=== PATIENT | male | born 1960 | race Caucasian/White ===

== ENCOUNTER 2018-01-09 09:11 | Inpatient (IN) | payer OTHER ==
[~2018-01-09] VITALS: Ht 177.8 cm; Wt 64.0 kg
[2018-01-09 09:34] VITALS: Ht 177.8 cm; Wt 64.0 kg
[2018-01-09 10:48] LABS: PLATELET COUNT 237 x10^3mcL (130-400)
[2018-01-09 10:59] LABS: CALCIUM 9.3 mg/dL (8.5-10.1); CARBON DIOXIDE 28.9 mmol/L (21-32); CHLORIDE SERUM 97 mmol/L (98-107); CREATININE SERUM 0.9 mg/dL (0.7-1.3); GFR1 > 60 mL/min; GLUCOSE SERUM 107 mg/dL (74-106); POTASSIUM SERUM 4.1 mmol/L (3.5-5.1); SODIUM SERUM 134 mmol/L (136-145)
[2018-01-09 11:11] LABS: ALBUMIN 3.7 g/dL (3.4-5.0); ALKALINE PHOSPHATASE 104 U/L (46-116); ALT/SGPT 34 U/L (16-63); AMYLASE 46 U/L (25-115); AST/SGOT 38 U/L (15-37); BILIRUBIN TOTAL 2.51 mg/dL (0.20-1.00); HDL CHOLESTEROL 45 mg/dL (40-60); LIPASE 82 IU/L (73-393); T4(THYROXINE) 6.7 ug/dL (4.7-13.3); TOTAL PROTEIN, SERUM 8.2 g/dL (6.4-8.2)
[2018-01-09 11:13] LABS: CHOLESTEROL 130 mg/dL (<200)
[2018-01-09 11:16] LABS: microscopic required? YES; urine erythrocyte NEGATIVE (NEGATIVE)
[2018-01-09 11:25] LABS: AMPHETAMINE QUAL UR POSITIVE (NEG <=1000)
[2018-01-09 12:09] LABS: BAND NEUTROPHIL 11 % (0-10); BASOPHIL 0 % (0-2); MONOCYTE 10 % (0-7); SEGMENTED NEUTROPHILS 66 % (37-75)
[2018-01-09 12:10] LABS: PLATELET MORPHOLOGY PLATELETS NORMAL; rbc morphology (normal/abnorm) ABNORMAL (NORMAL)
[2018-01-09 13:13] VITALS: BP 124/69
[2018-01-09 13:48] LABS: T3 TOTAL 1.13 ng/mL
[2018-01-09 13:52] LABS: CHOLESTEROL/HDL RATIO 2.7; MAGNESIUM 1.8 mg/dL (1.8-2.4); PHOSPHOROUS 2.9 mg/dL (2.5-4.9)
[2018-01-09 14:08] LABS: FREE T4 0.87 ng/dL (0.76-1.46); T4(THYROXINE) 6.3 ug/dL (4.7-13.3)
[2018-01-09 18:21] VITALS: BP 118/76
[2018-01-09 21:07] VITALS: BP 139/77
[2018-01-10 05:21] VITALS: BP 133/79
[2018-01-10 06:42] LABS: CARBON DIOXIDE 27.1 mmol/L (21-32); CHLORIDE SERUM 104 mmol/L (98-107); CREATININE SERUM 0.8 mg/dL (0.7-1.3); GFR1 > 60 mL/min; GLUCOSE SERUM 146 mg/dL (74-106); MAGNESIUM 2.1 mg/dL (1.8-2.4); POTASSIUM SERUM 4.3 mmol/L (3.5-5.1); SODIUM SERUM 140 mmol/L (136-145)
[2018-01-10 06:56] LABS: PLATELET COUNT 227 x10^3mcL (130-400)
[2018-01-10 09:45] VITALS: BP 150/84
[2018-01-10 09:56] LABS: BAND NEUTROPHIL 10 % (0-10); BASOPHIL 0 % (0-2); MONOCYTE 8 % (0-7); SEGMENTED NEUTROPHILS 73 % (37-75)
[2018-01-10 09:57] LABS: PLATELET MORPHOLOGY PLATELETS NORMAL; rbc morphology (normal/abnorm) ABNORMAL (NORMAL)
[2018-01-10 09:58] LABS: burr cell (echinocyte) 1+
[2018-01-10 12:25] VITALS: BP 122/75
[2018-01-10 16:50] VITALS: BP 138/87
[2018-01-10 22:11] VITALS: BP 140/88
[2018-01-11 04:53] VITALS: BP 160/98
[2018-01-11 09:20] VITALS: BP 150/90
[2018-01-11 17:07] VITALS: BP 129/82
[2018-01-11 20:49] VITALS: BP 154/95
[2018-01-12 05:07] VITALS: BP 139/93
[2018-01-12 06:39] LABS: BILIRUBIN TOTAL 0.8 mg/dL (0.20-1.00); CHLORIDE SERUM 101 mmol/L (98-107); CREATININE SERUM 0.8 mg/dL (0.7-1.3); GFR1 > 60 mL/min; GLUCOSE SERUM 92 mg/dL (74-106); MAGNESIUM 1.9 mg/dL (1.8-2.4); PHOSPHOROUS 3.3 mg/dL (2.5-4.9); POTASSIUM SERUM 3.7 mmol/L (3.5-5.1); SODIUM SERUM 140 mmol/L (136-145)
[2018-01-12 06:43] LABS: BASOPHIL % 0.3 % (0-2); PLATELET COUNT 320 x10^3mcL (130-400)
[2018-01-12 06:57] LABS: RED CELL DISTRIBUTION WIDTH 14.7 % (11.5-14.5)
[2018-01-12 08:50] VITALS: BP 113/62
[2018-01-12 10:59] VITALS: BP 113/62
[2018-01-12] MEDS ORDERED: LEVAQUIN750 MG PO (11:13)
[2018-01-12] MEDS ORDERED: LAC PO (11:14)
[2018-01-12] MEDS ORDERED: CLINDAMYCIN HC300 MG PO (11:14)
== END 2018-01-12 11:40 | disposition home or self-care (01) | DRG 720 ==
LOC: ED 09:11 → DU 12:11 → MU 12:11 → DU 12:57 → MU 01-11 09:27
PROVIDERS: Emergency Medicine; Family Medicine; Family Medicine Sports Medicine
DX: A41.9 Sepsis, unspecified organism (principal); N17.0 Acute kidney failure with tubular necrosis; J18.1 Lobar pneumonia, unspecified organism; E87.8 Other disorders of electrolyte and fluid balance, not elsewhere classified; E87.1 Hypo-osmolality and hyponatremia; F15.20 Other stimulant dependence, uncomplicated; F17.210 Nicotine dependence, cigarettes, uncomplicated; F12.90 Cannabis use, unspecified, uncomplicated; Z83.3 Family history of diabetes mellitus; Z59.0 Homelessness
CPT/HCPCS: 36600; 82962; 83880; 84439; 87804; 99406; J1956; J2930; J7030; J7613; J7644; Q0092

== ENCOUNTER 2018-07-05 19:31 | Emergency (ER) | payer OTHER ==
[~2018-07-05] VITALS: Ht 177.8 cm; Wt 63.6 kg
[~2018-07-05 19:31] MED LIST: CLINDAMYCIN HC300 MG PO; LAC PO; LEVAQUIN750 MG PO
[2018-07-05 20:50] VITALS: BP 134/82; Ht 177.8 cm; Wt 63.6 kg
== END 2018-07-05 22:12 | disposition left against medical advice (07) ==
LOC: ED 19:31
DX: Z53.21 Procedure and treatment not carried out due to patient leaving prior to being seen by health care provider (principal)

== ENCOUNTER 2019-05-06 14:24 | Emergency (ER) | payer OTHER ==
[~2019-05-06] VITALS: Ht 177.8 cm; Wt 66.7 kg
[2019-05-06 14:33] VITALS: Ht 177.8 cm; Wt 66.7 kg
--- NOTE | 2019-05-06 16:00 | NUR ---
PEAK FLOW PRE TX 230 LPM PEAK FLOW POST TX 240 LPM
[2019-05-06 16:03] LABS: BASOPHIL % 0.8 % (0-2); PLATELET COUNT 184 x10^3mcL (130-400)
[2019-05-06 16:06] LABS: RED CELL DISTRIBUTION WIDTH 15.1 % (11.5-14.5)
[2019-05-06 16:15] LABS: CALCIUM 9.1 mg/dL (8.5-10.1); CARBON DIOXIDE 24.9 mmol/L (21-32); CHLORIDE SERUM 107 mmol/L (98-107); CREATININE SERUM 1.1 mg/dL (0.7-1.3); GFR1 > 60 mL/min; GLUCOSE SERUM 97 mg/dL (74-106); SODIUM SERUM 146 mmol/L (136-145)
[2019-05-06 16:30] LABS: ALBUMIN 3.6 g/dL (3.4-5.0); ALKALINE PHOSPHATASE 88 U/L (46-116); ALT/SGPT 16 U/L (16-63); AMYLASE 64 U/L (25-115); AST/SGOT 13 U/L (15-37); BILIRUBIN TOTAL 0.53 mg/dL (0.20-1.00); CHOLESTEROL 155 mg/dL (<200); LIPASE 127 IU/L (73-393); T4(THYROXINE) 6.9 ug/dL (4.7-13.3); TOTAL PROTEIN, SERUM 7.1 g/dL (6.4-8.2)
[2019-05-06 16:31] LABS: HDL CHOLESTEROL 26 mg/dL (40-60)
[2019-05-06 17:28] LABS: UA SPECIFIC GRAVITY 1.015 (1.005-1.035); microscopic required? YES; urine erythrocyte NEGATIVE (NEGATIVE)
[2019-05-06 17:39] LABS: AMPHETAMINE QUAL UR NONE DETECTED (See below)
[2019-05-06 19:33] VITALS: BP 118/67
== END 2019-05-06 19:33 | disposition home or self-care (01) ==
LOC: ED 14:24
PROVIDERS: Emergency Medicine
DX: J98.01 Acute bronchospasm (principal); J44.1 Chronic obstructive pulmonary disease with (acute) exacerbation; F17.210 Nicotine dependence, cigarettes, uncomplicated; I10 Essential (primary) hypertension; F15.10 Other stimulant abuse, uncomplicated
CPT/HCPCS: 36600; 82962; 83880; 94150; 99406; J1956; J2930; J7030; J7613; J7644; Q0092

== ENCOUNTER 2019-12-14 05:42 | Emergency (ER) | payer OTHER ==
[~2019-12-14] VITALS: Ht 177.8 cm; Wt 66.7 kg
[2019-12-14 05:46] VITALS: Ht 177.8 cm; Wt 66.7 kg
[2019-12-14 06:41] VITALS: BP 121/79
== END 2019-12-14 06:41 | disposition home or self-care (01) ==
LOC: ED 05:42
DX: S39.012A Strain of muscle, fascia and tendon of lower back, initial encounter (principal); I10 Essential (primary) hypertension; F17.210 Nicotine dependence, cigarettes, uncomplicated; X58.XXXA Exposure to other specified factors, initial encounter; Y93.89 Activity, other specified; Y92.89 Other specified places as the place of occurrence of the external cause; Y99.8 Other external cause status

== ENCOUNTER 2019-12-28 21:31 | Emergency (ER) | payer OTHER ==
[~2019-12-28] VITALS: Ht 177.8 cm; Wt 71.0 kg
[2019-12-28 21:43] VITALS: Ht 177.8 cm; Wt 71.0 kg
[2019-12-28 22:57] VITALS: BP 108/71
== END 2019-12-28 22:57 | disposition home or self-care (01) ==
LOC: ED 21:31
DX: M77.9 Enthesopathy, unspecified (principal); I10 Essential (primary) hypertension
CPT/HCPCS: J1885